=== PATIENT | male | born 1970 ===

== ENCOUNTER 2021-12-17 21:54 | Observation (INO) | payer OTHER, SELFPAY ==
[2021-12-17 22:21] VITALS: BMI 35.5
[2021-12-17] MEDS ORDERED: ONDANSETRON 4 MG/2 ML VIAL IV PRN (22:23)
--- NOTE | 2021-12-17 22:28 | P.HP ---
Certification for Inpatient Patient admitted to: Observation With expected LOS: <2 Midnights Patient will require the following post-hospital care: None Practitioner: I am a practitioner with admitting privileges, knowledge of patient current condition, hospital course, and medical plan of care. Services: Services provided to patient in accordance with Admission requirements found in Title 42 Section 412.3 of the Code of Federal Regulations Patient History Date of Service: 12/17/21 Reason for admission: Chest pain History of Present Illness: 51-year-old male with history of seizure disorder, diet-controlled diabetes presented to outside hospital emergency department for chest pain. He reported the chest pain began yesterday/last night while he was in the couch pain is described as sharp/stabbing radiating to left shoulder area, he again began to experience pain today associated with near syncope. He was evaluated at outside hospital his initial troponin was negative EKG was sinus bradycardia with no STEMI criteria chest x-ray was unremarkable other labs were normal limits. On exam patient with tenderness to palpation of chest wall, states this recreates the pain that he presented for. Patient does have history of hormone therapy with testosterone injections, does not smoke. Will admit for ACS/PE R/O - Past Medical/Surgical History Diabetic: No -: DM-diet controlled -: SZ -: None Psychosocial/ Personal History: Lives with family, on disability. - Family History Father -: Heart disease - Social History Smoking Status: Never smoker Alcohol use: No CD- Drugs: No Caffeine use: Yes Place of Residence: Home Review of Systems 10-point ROS is otherwise unremarkable Cardiovascular: Chest Pain, Other (near syncope) Physical Examination - Vital Signs Temperature: 97.5 F Blood Pressure: 150/82 Pulse: 60 Respirations: 18 Pulse Ox (%): 98 - Physical Exam General: Alert, In no apparent distress, Oriented x3 HEENT: Atraumatic, PERRLA, Mucous membr. moist/pink, EOMI, Sclerae nonicteric Neck: Supple, 2+ carotid pulse no bruit, No LAD, Without JVD or thyroid abnormality Respiratory: Clear to auscultation bilaterally, Normal air movement Cardiovascular: Regular rate/rhythm, Normal S1 S2 Gastrointestinal: Normal bowel sounds, No tenderness Musculoskeletal: No tenderness, Tenderness (TTP Left chest wall) Integumentary: No rashes Neurological: Normal gait, Normal speech, Normal strength at 5/5 x4 extr, Normal tone, Normal affect Assessment and Plan - Plan Assessment: Chest pain rule out ACS/PE Diabetes mellitus type 2diet controlled Seizure disorder Plan: Chest pain rule out ACS/PE: Chest pain is atypical, reproducible with palpation of chest wall patient did have a near syncopal event will obtain D-dimer as patient is also on hormone therapy/testosterone. Trend troponin, monitor on telemetry, cardiology consult in place. If D-dimer is positive will perform CT to rule out PE. Diabetes mellitus type 2diet controlled: ADA diet Seizure disorder: Continue home medications. DVT PPX: Lovenox Code status: Full Discharge Plan: Home Plan to discharge in: 24 Hours - Advance Directives Does patient have a Living Will: No Does patient have a Durable POA for Healthcare: No - Code Status/Comfort Care Code Status Assessed: Yes (Full code) Critical Care: No Time Spent Managing Pts Care (In Minutes): 70
[2021-12-17] MEDS: MORPHINE 2 MG/ML SYR IV PRN (23:26)
[2021-12-18] MEDS ORDERED: KETOROLAC 30 MG/ML INJ ONE (01:23)
[2021-12-18] MEDS ORDERED: KETOROLAC 30 MG/ML INJ IV ONE (01:29)
[2021-12-18] MEDS: MORPHINE 2 MG/ML SYR IV PRN ×2 (03:40→08:38)
[2021-12-18 03:52] LABS: Absolute Lymphocytes (CBC) 3.1 K/uL (0.7-4.9); Hematocrit 40.6 % (39.6-49.0); Lymphocytes % 36.7 % (15.3-44.8); MCV 85.4 fL (80-100); MPV 7.6 fL (7.6-11.3); RBC Red Blood Cell Count 4.75 M/uL (4.33-5.43)
[2021-12-18 04:12] LABS: Albumin 3.4 g/dL (3.4-5.0); Magnesium 2.1 mg/dL (1.8-2.4); Potassium 3.9 mmol/L (3.5-5.1); Troponin High Sensitivity 18.8 pg/mL (<58.9)
[2021-12-18] MEDS ORDERED: METOPROLOL TAR 25 MG TAB PO SCH (06:00)
[2021-12-18] MEDS ORDERED: ENOXAPARIN 40 MG/0.4 ML SQ SCH (09:00)
[2021-12-18] MEDS ORDERED: ASPIRIN EC 81 MG TAB PO SCH (09:00)
[2021-12-18 10:04] VITALS: O2SAT 97
[2021-12-18 13:01] VITALS: BP 126/67; TEMP 97.4
--- NOTE | 2021-12-18 13:44 | EKG ---
Test Date: 2021-12-18 Test Time: 08:50:24 Lawn Care Technician: MARJORIE MEASUREMENT RESULTS: Intervals: Rate: 59 [place]: 162 QRSD: 96 QT: 426 QTc: 421 [place]: P: 18 NJ: 162 QRS: 14 T: 23 INTERPRETIVE STATEMENTS: Sinus bradycardia Moderate voltage criteria for LVH, may be normal variant Borderline ECG No previous ECG available for comparison Electronically Signed On 12-18-21 13:43:43 CDT by Tawanda Carrion
[2021-12-18] MEDS ORDERED: ATORVASTATIN 40 MG TAB PO SCH (21:00)
--- NOTE | 2021-12-19 13:07 | CON ---
Date of Consultation: 12/18/2021 Reason For Consultation: Atypical chest pain. History Of Present Illness: Mr. Brunner is a 51-year-old male, who has a history of diabetes and seizure disorder. He also has a family history of heart disease in his dad. He had come in with ch est pain. He went to office Emergency Room and was eventually sent here. The pain is described as a rest pain, sharp, stabbing, radiating to the left shoulder. He felt like he was going to faint. He denied any nausea, vomiting, diaphoresis, PND, orthopnea, pedal edema, or palpitation. EKG shows si nus bradycardia. Chest x-ray was normal. His blood work was normal. Past Medical History: As stated above. Allergies: NONE. Review of Systems: Negative. Social History: Negative. Family History: Positive for heart disease. Physical Examination: Vital Signs: Stable. He was afebrile. HEENT: Negative. Neck: Supple with no bruit. Chest: Clear. Cardiac: Revealed a regular rhythm and rate. No murmurs, gallops, or rubs. Abdomen: Benign. Extremities: Revealed no clubbing, cyanosis, or edema. Diagnostic Data: Were all within normal limits except for triglyceride of 232. Impression And Plan: Atypical chest pain. The pain sounds musculoskeletal. He is actually tender t o touch. He may have costochondritis. I believe he is okay to go home today and I will make arrange ments for an outpatient echocardiogram and a stress test. He does have multiple cardiac risk factors including his age, gender, his family history and his diabetes. PROMISE/CAITLYN Voice ID: [id number] Report ID: [id number]
== END 2021-12-18 13:29 | disposition home or self-care (01) ==
LOC: 2ND 21:54
PROVIDERS: ADMIT Hospitalist; ATTEND Hospitalist
DX: R07.89 Other chest pain (principal); E11.9 Type 2 diabetes mellitus without complications; G40.909 Epilepsy, unspecified, not intractable, without status epilepticus; R55 Syncope and collapse; Z79.890 Hormone replacement therapy; Z82.49 Family history of ischemic heart disease and other diseases of the circulatory system
CPT/HCPCS: 36415; 80053; 80061; 83735; 84484; 85025; 85379; 93005; G0378; G0379; J1650; J2270; J2405